=== PATIENT | female | born 1995 | race Caucasian/White ===

== ENCOUNTER 2024-10-14 00:36 | Emergency (ER) | payer MEDICAID ==
[~2024-10-14] VITALS: Ht 167.6 cm; Wt 144.6 kg
[2024-10-14 00:43] VITALS: BP 125/82; PULSE 100; RESP 20; TEMP 36.1; O2SAT 96
== END 2024-10-14 01:36 | disposition left against medical advice (07) ==
LOC: ER 00:36
DX: R10.9 Unspecified abdominal pain (principal); Z53.21 Procedure and treatment not carried out due to patient leaving prior to being seen by health care provider